=== PATIENT | male | born 1955 ===

== ENCOUNTER → 2020-09-25 | Outpatient (CLI) | payer OTHER | END | disposition home or self-care (01) | LOC: PPH VACUNA | DX: Z23 Encounter for immunization (principal) ==

== ENCOUNTER 2020-10-16 23:38 | Outpatient (CLI) | payer OTHER | END 2020-10-16 23:39 | disposition home or self-care (01) | LOC: PPH VACUNA 23:38 | DX: Z23 Encounter for immunization (principal) ==